=== PATIENT | male | born 1970 | race Caucasian/White ===

== ENCOUNTER 2016-10-07 21:28 | Emergency (ER) | payer OTHER ==
[2016-10-08 02:56] LABS: BUN/CREATININE RATIO 20 (0-10)
[2016-10-08 03:09] LABS: HEMOGLOBIN 12.7 gm/dl (14.0-17.5); RED BLOOD COUNT 4.21 M/UL (4.20-5.50)
== END 2016-10-08 09:50 | disposition home or self-care (01) ==
LOC: ER1 21:28
PROVIDERS: Emergency Medicine
DX: S80.01XA Contusion of right knee, initial encounter (principal); E11.9 Type 2 diabetes mellitus without complications; Z79.84 Long term (current) use of oral hypoglycemic drugs; Z79.899 Other long term (current) drug therapy; Z79.1 Long term (current) use of non-steroidal anti-inflammatories (NSAID); W22.8XXA Striking against or struck by other objects, initial encounter
CPT/HCPCS: 36415; 73564; 73590; 73610; 80048; 82550; 85025; 85610; 85730; 93971; 96372; 99284; J1650

== ENCOUNTER → 2021-02-03 | Outpatient (CLI) | payer OTHER ==
[2021-02-03 12:08] LABS: HEMOGLOBIN 15.7 gm/dl (14.0-17.5); RED BLOOD COUNT 5.2 M/UL (4.20-5.50); WHITE BLOOD COUNT 8.1 K/UL (4.5-11.0)
[2021-02-03 12:32] LABS: BUN/CREATININE RATIO 13 (0-10)
[2021-02-04 07:08] LABS: CREATININE, URINE 205.6 mg/dL (Not Estab.)
== END ==
LOC: LAB 10:31
PROVIDERS: Emergency Medicine
DX: I10 Essential (primary) hypertension (principal); E11.9 Type 2 diabetes mellitus without complications; E78.2 Mixed hyperlipidemia; R53.83 Other fatigue; Z79.899 Other long term (current) drug therapy
CPT/HCPCS: 80053; 82043; 82570; 83036; 84153; 84443; 84550; 85025

== ENCOUNTER 2022-01-15 15:43 | Emergency (ER) | payer OTHER | END 2022-01-15 17:24 | disposition left against medical advice (07) | LOC: ER1 15:43 | DX: Z53.21 Procedure and treatment not carried out due to patient leaving prior to being seen by health care provider (principal) ==